=== PATIENT | male | born 1990 | race Caucasian/White ===

== ENCOUNTER 2020-10-30 14:05 | Outpatient (CLI) | payer OTHER ==
[2020-10-30 17:01] VITALS: BP 100/60
--- NOTE | 2020-10-30 17:01 | SLEEP CARE CONSULTATION ---
Information from patient questionnaire entered by Akosua Poon. I have reviewed and concur with the information entered by Akosua Poon. This document represents the service I personally performed and the decisions made by me, Davian Hyatt MD, [facility]. History of Present Illness Service Date and Time: 10/30/2020 1405 Reason for Visit: New patient Chief Complaint: reports: Unrefreshed sleep, Snoring, Observed pauses in breathing Date of Onset: 2 years plus Usual bedtime: 10-11 pm on workdays, 12-1 am on weekends Time it takes to fall asleep: 30 minutes or more Snores at night: Yes Observed to quit breathing while asleep: Yes Sleeps alone due to snoring: No Number of times waking at night: 2-3 Reasons for waking at night: reports: Snoring, Bathroom, Other (unknown reason) Toss, Turn, or Twitch while sleeping: Yes Recalls having dreams: No Usually gets out of bed at: 5:45 am workdays, 8 am weekends Feels refreshed in the morning: No Morning headache: Yes (resolves in 1-2 hours, sometimes lasts all day) Sleepy or fatigued during the day: Yes Ever fallen asleep while driving: No Takes day naps: No Dreams during day naps: No Prior sleep studies: No Additional HPI information: I had the pleasure of seeing Mr. Field today regarding the possibility of him having a sleep disorder. As you know, he is a 30 year old gentleman who complains of loud snore and his has seen him quit breathing while asleep. The patient tells me that he normally goes to bed around 10 - 11 pm, and it takes him approximately 30 minutes to fall asleep. His can still sleep in the same bed. He can recall waking up on the average of 2 - 3 times during the night. Most of the time he wakes up because of having to use the bathroom and his own snore. There is a lot of tossing and turning in his sleep. There is somniloquy (sleep talking) but not somnambulism (sleep walking). Generally there is no recollection of dreams. In the morning he usually gets up out of t he bed around 5:45 - 8 a.m. not feeling refreshed nor rested. He has a morning headache that goes away within 1 2 hours. During the day he complains of feeling sleepy and fatigued. His score on [place] Sleepiness Scale is 10 out of 24. He never has fallen asleep while driving nor has had any accident due to sleepiness. He usually does not take naps during the day. Upon falling asleep during the day he denies having vivid dreams. He denies having impaired concentration during the day. - Parasomnia Symptoms Ever been unable to move upon waking from sleep: No Walks in sleep: No Talks in sleep: Yes Ever acted out dreams in sleep: No Ever felt weak in the knees when startled or emotional: No Bothered by creepy, crawly, restless sensations in legs: Yes Problems with memory or concentration: No Subjective Initial [place] Sleepiness Scale score: 10 (in 2020) Past Medical History Past Medical History: reports: Hypothyroidism Social History The patient's occupation is a Active . Patient is and lives in [place]. Have you smoked in the past 12 months: No Alcohol use: Yes Alcohol amount and frequency: 1-2 drinks 1-2 days a week Caffeine use: Yes Caffeine amount and frequency: 1-3 coffee everyday Family History Family history of sleep disordered breathing: No Allergies and Home Medications Drug allergies reviewed: Yes Home medication list reviewed: Yes Review of Systems Weight gain over past 5 years: about 25 Cardiovascular: reports: high blood pressure Respiratory: denies: shortness of breath, wheeze, sputum production, chronic cough, other Gastrointestinal: reports: abdominal pain Urinary: denies: incontinence, frequency, urgency, impotence, other Neurological: reports: headaches Psychiatric: denies: Attention Deficit Hyperactivity, anxiety, depression, mood disorder, claustrophobia, other Ear/Nose/Throat: reports: nose bleeds, wisdom teeth removed Endocrine: denies: thyroid disease, history of goiter, sluggishness, too hot or cold, excessive thirst, increased appetite, increased urination, unexplained weakness, other Musculoskeletal: reports: joint pain Immunologic: denies: sneezing, rash, itching, allergies to food or environment, other Physical Exam Vital signs obtained and entered by: Dr. Hyatt Blood Pressure: 100/60 Cuff size: regular Heart Rate: 49 O2 Saturation: 98 Height: 5 ft 8 in Weight: 225 lb Body Mass Index: 34.2 BMI Classification: Obese Neck circumference: 16.5 Mood/affect: normal HEENT: No craniofacial malformation Nostrils: patent to airflow Turbinates: normal Septum: midline Mouth and throat: narrow oropharynx Soft palate: long Hard palate: normal Uvula: normal Uvula visualization: 25% Mallampati Class III Tongue: normal in size Tonsils: small Chin and jaw: normal size and position Neck: normal w/o lymphadenopathy or thyromegaly Heart: regular rate and rhythm Lungs: clear bilaterally Abdomen: soft Extremities: no edema or clubbing Impression and Plan IMPRESSION: 1. Obstructive Sleep Apnea-Hypopnea Syndrome, as suggested by history of loud and irregular snoring, observed cessation of breath while asleep, frequent awakenings during the night, nocturnal choking, morning headache, unrefreshed sleep, and daytime hypersomnolence. Narrow oropharynx and obesity are common predisposing factors for obstructive sleep apnea-hypopnea syndrome. I recommend proceeding to polysomnography to confirm the diagnosis and to assess severity. If he has significant sleep disordered breathing, a manual CPAP titration study will also be performed to find the optimal treatment pressure. I informed the patient of what the sleep studies involve and after some discussion, he agreed to proceed. Plan: 1. Schedule polysomnography and return in 1 to 2 weeks after the study to discuss result and initiate therapy. 2. Avoid long distance driving or when feeling sleepy. 3. Avoid alcohol, sedative and muscle relaxant around bedtime. 4. Attempt to lose weight. Follow up recommended for: Weight management Visit Type: In Office Time Spent with Patient (minutes): 15 Provider Statement: I spent 100% of the Face to Face Visit with the patient with greater than 50% spent counseling the patient and coordination of care.
== END 2020-10-30 14:06 | disposition home or self-care (01) ==
LOC: SC 14:05
PROVIDERS: ATTEND Internal Medicine Pulmonary Disease
DX: R06.83 Snoring (principal); G47.8 Other sleep disorders; R51.9 Headache, unspecified; G47.10 Hypersomnia, unspecified; R06.81 Apnea, not elsewhere classified; E66.9 Obesity, unspecified; Z68.34 Body mass index [BMI] 34.0-34.9, adult
CPT/HCPCS: 99202; 99212

== ENCOUNTER 2020-12-28 19:31 | Outpatient (CLI) | payer OTHER | END 2020-12-28 19:32 | disposition home or self-care (01) | LOC: SC 19:31 | PROVIDERS: ATTEND Internal Medicine Pulmonary Disease | DX: R06.81 Apnea, not elsewhere classified (principal); G47.8 Other sleep disorders; G47.10 Hypersomnia, unspecified | CPT/HCPCS: 95810 ==

== ENCOUNTER 2021-01-16 09:26 | Outpatient (CLI) | payer OTHER ==
--- NOTE | 2021-01-16 10:03 | SLEEP CARE CONSULTATION ---
Information from patient questionnaire entered by Akosua Poon. I have reviewed and concur with the information entered by Akosua Poon. This document represents the service I personally performed and the decisions made by , Marquita Gunn ARNP. History of Present Illness Service Date and Time: 01/16/2021925 Initial [place] Sleepiness Scale score: 10 (in 2020) Current [place] Sleepiness Scale score: 10 Additional HPI information: TIERA HAHN returns for follow up and results of the recently performed polysomnography. The patient was informed of the following findings: no significant for sleep disordered breathing with an average AHI of 1.0 and angel oxygen saturation of 92%. I explained the pathophysiology behind obstructive sleep apnea. Patient does not have sleep apnea and was advised how weight gain could increase the risk of developing sleep apnea in the future. I strongly encouraged the patient to lose weight. Patient has light snoring. Snoring can be reduced by weight loss. Weight loss is best achieved with diet consult. Patient instructed to contact PCP for referral. Snoring can also be treated with an oral appliance from a dentist. Advised to check insurance coverage. In addition, an ENT evaluation can be do to see if other treatment is indicated. Patient counseled not drink alcohol less than 4 hours before bedtime as it can increase snoring and apnea. Patient was cautioned about risks of drowsy driving until sleepiness symptoms resolve. Patient denies drowsy driving. Sleep Study - Results Type of Sleep Study: Polysomnography Prior sleep studies: No Polysomnography/Home Sleep Study results: IMPRESSION: The quality of the study is good. The patient had normal sleep efficiency. The sleep architecture was relatively normal as well considering the first night effect. Respiratory monitoring showed no significant sleep disordered breathing (AHI = 1.0) or hypoxia (angel oxygen saturation of 92%). The patient slept adequately in supine position (supine AHI = 0.7; non-supine = 1.14). Snore was light and infrequent. There was no significant periodic leg movement of sleep. Cardiac rhythm was normal sinus rhythm without significant arrhythmia. No abnormal behavior (parasomnia) observed during the night. Allergies and Home Medications Home medication list reviewed: Yes (no changes) Review of Systems Review of systems same as previous: Yes (no changes) Physical Exam Heart Rate: 56 O2 Saturation: 99 Height: 5 ft 8 in Weight: 215 lb Body Mass Index: 32.6 BMI Classification: Obese Impression and Plan Snoring but no significant sleep disordered breathing. Patient advised that often weight loss will reduce snoring as well as apnea risk. An oral appliance can also be used for snoring. This would require a dental consultation. Patient cautioned not to use other online appliances as can cause bite issues. A list of accredited dentists in [facility] and one local dentist who makes oral appliances is available in office. Patient is advised to check if insurance will cover. An ENT consult can also be helpful to determine if any other treatment is an option. * Attempt to lose weight * Avoid alcohol consumption near bedtime * The patient is cautioned about driving until sleepiness is completely resolved. * Return as needed. Counseling Topics: Weight loss health impact Visit Type: In Office Time Spent with Patient (minutes): 10 Provider Statement: I spent 100% of the Face to Face Visit with the patient with greater than 50% spent counseling the patient and coordination of care.
== END 2021-01-16 09:27 | disposition home or self-care (01) ==
LOC: SC 09:26
PROVIDERS: ATTEND Nurse Practitioner Family
DX: R06.83 Snoring (principal); E66.9 Obesity, unspecified; Z68.32 Body mass index [BMI] 32.0-32.9, adult
CPT/HCPCS: 99212